=== PATIENT | female | born 1995 | race Caucasian/White ===

== ENCOUNTER 2019-07-26 18:43 | Emergency (ER) | payer OTHER ==
[~2019-07-26] VITALS: Ht 170.2 cm; Wt 68.0 kg
[2019-07-26] MEDS ORDERED: PRENATAL COMPL1 EACH PO (18:58)
== END 2019-07-26 22:06 | disposition home or self-care (01) ==
LOC: ED 18:43
DX: O20.0 Threatened abortion (principal); O99.342 Other mental disorders complicating pregnancy, second trimester; F41.9 Anxiety disorder, unspecified; Z3A.15 15 weeks gestation of pregnancy
CPT/HCPCS: 76815; 81001; 84702; 85025; 99284-25

== ENCOUNTER 2019-07-30 10:33 | Emergency (ER) | payer OTHER ==
[~2019-07-30] VITALS: Ht 170.2 cm; Wt 68.0 kg
[~2019-07-30 10:33] MED LIST: PRENATAL COMPL1 EACH PO
--- OUTSIDE RECORDS SUMMARY | 2019-07-30 10:36 | XMS ---
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 Bernard has no Care Guidelines for this patient. Sarah VISIT COUNT (12 MO.) 2 [facility] [place] TOTAL 2 NOTE: Visits indicate total known visits. [place] VISIT TRACKING (12 MO.) 07/30/2019 10:35 [facility] [place] TYPE: Emergency COMPLAINT: - CRAMPING 07/26/2019 18:[address] [facility] [place] TYPE: Emergency COMPLAINT: - VAGINAL BLEEDING DIAGNOSES: - 15 weeks gestation of - Other mental disorders complicating , second trimest - Hemorrhage in early , unspecified - Anxiety disorder, unspecified - Threatened INPATIENT VISIT TRACKING (12 MO.) No inpatient visits to display in this time frame [email or web address]
[2019-07-30] MEDS ORDERED: NUVESSA5 GM PV (12:37)
== END 2019-07-30 12:54 | disposition home or self-care (01) ==
LOC: ED 10:33
DX: O23.592 Infection of other part of genital tract in pregnancy, second trimester (principal); B96.89 Other specified bacterial agents as the cause of diseases classified elsewhere; O99.342 Other mental disorders complicating pregnancy, second trimester; F41.9 Anxiety disorder, unspecified; Z3A.16 16 weeks gestation of pregnancy
CPT/HCPCS: 76815; 80053; 81001; 83690; 83735; 85025; 87210; 87491; 87591; 96361; 96374; 99284-25; J2765; J7030

== ENCOUNTER 2020-01-20 00:08 | Inpatient (IN) | payer OTHER ==
[~2020-01-20] VITALS: Ht 167.6 cm; Wt 89.4 kg
[~2020-01-20 00:08] MED LIST changes: +NUVESSA5 GM PV
--- NOTE | 2020-01-20 12:32 | PR ---
[facility] [address] [place], [place] [address] Signed Progress Notes IP Datetime Report Generated by CPN: 01/20/2020 12:32 PROGRESS NOTES: [id number] Impression: Normal Progression of Labor; Reassuring Heart Rate Procedures: Artificial ROM; Sterile Vag Exam Plan: Continue Present Management VITAL SIGNS: [id number] Vital Signs: Reviewed; Within Normal Limits EXAM: [id number] Dilatation: 3.0 Effacement: 90 Station: -2 Contractions: rare MEMBRANES: [id number] ROM Note: vaginal vault dry Comments: Pt seen and examined. Doing well. Contractions more regular and mild, rated 3/10. Some bloody show. On exam, ripe cervix w/ bulging membranes. AROM performed w/out difficulty. Discussed anticapted course of FETUS A: [id number] FHR Baseline: 130 Variability: Moderate 6-25bpm Accelerations: 15X15 Decelerations: None FHR Category: Category I Comments on Fetus A: No evidence of metabolic acidosis FETUS B: [id number] Signing Physician: Mahendra Ludwig DO Copies: ~ *Electronically Signed* 01/20/20 1232 MAHENDRA LUDWIG DO PATIENT NAME: CARLOS BUTLER PROGRESS NOTE DATE OF : [birth year] PHYSICIAN: MAHENDRA LUDWIG DO RPT #: [id number] REPORT IS CONFIDENTIAL AND NOT TO BE RELEASED WITHOUT AUTHORIZATION
--- NOTE | 2020-01-20 15:52 | PR ---
[facility] [address] [facility] [place], [place] [address] Signed Progress Notes IP Datetime Report Generated by CPN: 01/20/2020 15:52 PROGRESS NOTES: [id number] Impression: Normal Progression of Labor; Reassuring Heart Rate Procedures: Sterile Vag Exam Plan: Continue Present Management VITAL SIGNS: [id number] Vital Signs: Reviewed; Within Normal Limits EXAM: [id number] Dilatation: 6.0 Effacement: 100 Station: 0 Contractions: rare MEMBRANES: [id number] ROM Note: vaginal vault dry Comments: Pt seen and examined. Doing well. Comfortable w/ epidural. Progressing as anticipated. Continue expectant management. Reviewed anticipated course of labor / delivery. All questions answered FETUS A: [id number] FHR Baseline: 130 Variability: Moderate 6-25bpm Accelerations: 15X15 Decelerations: None FHR Category: Category I Comments on Fetus A: No evidence of metabolic acidosis FETUS B: [id number] Signing Physician: Mahendra Ludwig DO Copies: ~ *Electronically Signed* 01/20/20 1552 MAHENDRA LUDWIG DO PATIENT NAME: CARLOS BUTLER PROGRESS NOTE DATE OF : [birth year] PHYSICIAN: MAHENDRA LUDWIG DO RPT #: [id number] REPORT IS CONFIDENTIAL AND NOT TO BE RELEASED WITHOUT AUTHORIZATION
--- NOTE | 2020-01-21 10:03 | PR ---
[facility] [address] [facility] [place], [place] [address] Signed PP Progress Notes Datetime Report Generated by CPN: 01/21/2020 10:03 SUBJECTIVE: [id number] Pain: Within Normal Limits Nausea/Vomiting: Denies Flatus: Yes Bowel Movement: No Vital Signs: [id number] Vital Signs: Reviewed; Within Normal Limits Cardiovascular: Normal Respiratory: Normal Abdomen/Uterus: Normal Lochia: Normal Vulva/Perineum: Not Done Breasts: Not Done CVA Tenderness: Normal Extremities: Normal Incision: Not Applicable Progress: Normal Exam Comments: Fundus firm U-2 nontender IMPRESSION/PLAN/PROCEDURES: [id number] Impression: Normal Progression Plan: Continue Present Management Progress Notes: Pt seen and examined. Doing well. Ambulating, voiding, and tolerating full diet. Pain and lochia minimal. well. No questions or concerns. Anticipate d/c home tomorrow. Hgb 11.0 Signing Physician: Mahendra Ludwig DO Copies: ~ *Electronically Signed* 01/21/20 1003 MAHENDRA LUDWIG DO PATIENT NAME: CARLOS BUTLER PROGRESS NOTE DATE OF : [birth year] PHYSICIAN: MAHENDRA LUDWIG DO RPT #: [id number] REPORT IS CONFIDENTIAL AND NOT TO BE RELEASED WITHOUT AUTHORIZATION
--- NOTE | 2020-01-22 08:49 | PR ---
[facility] [address] [facility] [place], [place] [address] Signed PP Progress Notes Datetime Report Generated by CPN: 01/22/2020 08:49 SUBJECTIVE: [id number] Pain: Within Normal Limits Nausea/Vomiting: Denies Flatus: Yes Bowel Movement: Yes Vital Signs: [id number] Vital Signs: Reviewed; Within Normal Limits Cardiovascular: Normal Respiratory: Normal Abdomen/Uterus: Normal Lochia: Normal Vulva/Perineum: Normal Breasts: Not Done CVA Tenderness: Normal Extremities: Normal Incision: Not Applicable Progress: Normal Exam Comments: Fundus firm U-2 nontender. Vulva examined with RN plasma processing centrifuge operator and well healing IMPRESSION/PLAN/PROCEDURES: [id number] Impression: Normal Progression Plan: Discharge Progress Notes: Pt seen and examined. Doing well. Ambulating, voiding, and tolerating full diet. C/O some vulvar discomfort but improved with ice. Normal exam. Discharge home today. Reviewed d/c instructions in detail. Signing Physician: Mahendra Ludwig DO Copies: ~ *Electronically Signed* 01/22/20 0849 MAHENDRA LUDWIG DO PATIENT NAME: CARLOS BUTLER PROGRESS NOTE DATE OF : [birth year] PHYSICIAN: MAHENDRA LUDWIG DO RPT #: [id number] REPORT IS CONFIDENTIAL AND NOT TO BE RELEASED WITHOUT AUTHORIZATION
== END 2020-01-22 11:45 | disposition home or self-care (01) | DRG 806 ==
LOC: FBC 00:08
PROVIDERS: ADMIT Obstetrics & Gynecology; ATTEND Obstetrics & Gynecology
PROC: 10E0XZZ Delivery of Products of Conception, External Approach (ICD-10-PCS; principal; 2020-01-20)
PROC: 0KQM0ZZ Repair Perineum Muscle, Open Approach (ICD-10-PCS; 2020-01-20)
PROC: 10907ZC Drainage of Amniotic Fluid, Therapeutic from Products of Conception, Via Natural or Artificial Opening (ICD-10-PCS; 2020-01-20)
PROC: 3E0P7VZ Introduction of Hormone into Female Reproductive, Via Natural or Artificial Opening (ICD-10-PCS; 2020-01-20)
PROC: 00HU33Z Insertion of Infusion Device into Spinal Canal, Percutaneous Approach (ICD-10-PCS; 2020-01-20)
PROC: 3E0R3BZ Introduction of Anesthetic Agent into Spinal Canal, Percutaneous Approach (ICD-10-PCS; 2020-01-20)
DX: O99.324 Drug use complicating childbirth (principal); O99.354 Diseases of the nervous system complicating childbirth; Z37.0 Single live birth; G43.009 Migraine without aura, not intractable, without status migrainosus; F12.90 Cannabis use, unspecified, uncomplicated; O70.1 Second degree perineal laceration during delivery; Z3A.40 40 weeks gestation of pregnancy; Z87.891 Personal history of nicotine dependence; Z86.19 Personal history of other infectious and parasitic diseases
CPT/HCPCS: 01960; 36415; 85027; A9270; J2795; J3010

== ENCOUNTER 2020-07-13 14:55 | Emergency (ER) | payer OTHER ==
[~2020-07-13] VITALS: Ht 167.6 cm; Wt 77.1 kg
--- OUTSIDE RECORDS SUMMARY | 2020-07-13 15:00 | XMS ---
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 Bernard has no Care Guidelines for this patient. Sarah VISIT COUNT (12 MO.) 3 [facility] TOTAL 3 NOTE: Visits indicate total known visits. ED/C VISIT TRACKING (12 MO.) 07/13/2020 14:55 [facility] [place] TYPE: Emergency COMPLAINT: - SYNCOPE EPISODE/SEIZURE 07/30/2019 10:35 [facility] [place] TYPE: Emergency COMPLAINT: - CRAMPING DIAGNOSES: - Other specified diseases and conditions complicating , childbirth and the puerperium - Other mental disorders complicating , second trimester - 16 weeks gestation of - Infection of other part of genital tract in , second trimester - Other specified bacterial agents as the cause of diseases classified elsewhere - Anxiety disorder, unspecified 07/26/2019 18:44 [facility] [place] TYPE: Emergency COMPLAINT: - VAGINAL BLEEDING DIAGNOSES: - 15 weeks gestation of - Other mental disorders complicating , second trimester - Hemorrhage in early , unspecified - Anxiety disorder, unspecified - Threatened INPATIENT VISIT TRACKING (12 MO.) 01/20/2020 00:08 [facility] [place] TYPE: [facility] COMPLAINT: - INDUCTION DIAGNOSES: - Drug use complicating childbirth - Second degree perineal laceration during delivery - 40 weeks gestation of - 40 weeks gestation of - Drug use complicating childbirth - Diseases of the nervous system complicating childbirth - Single live - Diseases of the nervous system complicating childbirth - Migraine without aura, not intractable, without status migrainosus - Migraine without aura, not intractable, without status migrainosus - Cannabis use, unspecified, uncomplicated - Drug use complicating , third trimester - Personal history of other infectious and parasitic diseases - Single live - Personal history of nicotine dependence - Personal history of nicotine dependence - Second degree perineal laceration during delivery - Personal history of other infectious and parasitic diseases - Cannabis use, unspecified, uncomplicated [email or web address]
--- NOTE | 2020-07-13 18:58 | EKG ---
[facility] [address] [facility] [place] [address] Signed Normal sinus rhythm Rightward axis Borderline ECG No previous ECGs available Confirmed by KRISTINA DUQUE MD ([id number]) on 07/13/2020 6:58:40 PM Electronically Signed By: KRISTINA DUQUE MD 07/13/20 1858 PATIENT NAME: CARLOS BUTLER Electrocardiogram DATE OF : [birth year] PHYSICIAN: KRISTINA DUQUE MD REPORT #: [id number] REPORT IS CONFIDENTIAL AND NOT TO BE RELEASED WITHOUT AUTHORIZATION
[2020-07-13] MEDS ORDERED: PRENATAL TABLE1 EAC1 PO (23:02)
== END 2020-07-13 18:40 | disposition home or self-care (01) ==
LOC: ED 14:55
DX: O99.891 Other specified diseases and conditions complicating pregnancy (principal); R55 Syncope and collapse; Z3A.15 15 weeks gestation of pregnancy; Z87.891 Personal history of nicotine dependence
CPT/HCPCS: 80053; 81001; 83735; 84484; 85025; 93005; 93010; 99284-25; J7030

== ENCOUNTER 2020-12-29 00:18 | Inpatient (IN) | payer OTHER ==
[~2020-12-29] VITALS: Ht 142.2 cm; Wt 95.3 kg
[~2020-12-29 00:18] MED LIST changes: +PRENATAL TABLE1 EAC1 PO
--- NOTE | 2021-01-02 13:15 | PATH ---
[facility] [address] [place], [place] [address] Signed SPECIMEN(S): A PLACENTA SPECIMEN SOURCE: A. PLACENTA CLINICAL HISTORY: Marginal abruption. FINAL PATHOLOGIC DIAGNOSIS: Placenta, umbilical cord and membranes: - Chorionic villi with appropriate maturation for gestational age. - Completeness of cotyledons cannot be ascertained, due to fragmentation of placenta (see Gross Description). - Focal microcalcifications. - Villous infarction comprising less than 10% of placental volume. - Three-vessel umbilical cord, with no pathologic abnormality. - membranes with mild acute chorioamnionitis. DF:llc:C2NR MICROSCOPIC EXAMINATION: Histologic sections of all submitted blocks are examined by light microscopy. These findings, together with the gross examination, support the pathologic diagnosis. GROSS DESCRIPTION: The specimen, labeled "Carlos Wiley, placenta," is received fresh and placed in formalin and consists of ambriz discoid placenta with the following parameters: Umbilical cord: Insertion paramarginal, measurement 42.3 x 1.5 cm; trivascular. Cord coiling index (per 10 cm): Two. Lesions: Areas of knuckling. Membranes: Insertion site: Marginal, pink and translucent with areas of opacification, rupture site grossly unremarkable. Intact. Other: Not grossly identified. Chorionic Plate: Normal radiating vascular pattern, blue-purple and shiny with minimal subchorionic fibrin. Lesions: Not grossly identified. Other: Not grossly identified. Maternal Surface: Normal cotyledons, one area of disruption at the periphery of the disc measuring 2.5 x 2.0 cm. Lesions: Not grossly identified. Measurement: 20.4 x 17.5 x 3.0 cm. Weight (trimmed): 556 g Cut Surface: Maroon and spongy. Lesions: Three areas of yellow-gibbs laminated PATIENT NAME: CARLOS WILEY PATHOLOGY DATE OF : [birth year] REPORT #: [id number] PHYSICIAN: MARKUS PATHOLOGY PCP: GENE HU MD REPORT IS CONFIDENTIAL AND NOT TO BE RELEASED WITHOUT AUTHORIZATION [facility] [address] [place], [place] [address] Signed consolidation that range in size from 1.5 cm up to 2.0 cm in greatest dimension and involve less than 10% of the placenta parenchyma. Focal areas of white, irregular fibrous tissue with gibbs calcification are present and involve less than 10% of the placenta parenchyma. Basal plate fibrin 0.1 cm in thickness. Other Findings: No firmly adherent blood clot is grossly identified. Compression of the placental disc is not grossly identified. Cassette Summary: (A1) membranes and umbilical cord (A2) areas of consolidation (A3-A4) areas of irregular fibrous tissue and calcifications (A5-A6) placenta parenchyma FB (under the direct supervision of a pathologist) The Gross Description was prepared using a voice recognition system. The report was reviewed for accuracy; however, sound-alike word errors, addition and/or deletions may occur. If there is any question about this report, please contact Client Services. PERFORMING LABORATORY: The technical component was performed by [facility] [address] (Boarding Kennel Or Cattery Operator: Monica Jurado MD; CLIA# [id number]). Professional interpretation was performed by [facility], [address] [facility] [address] [address] (CLIA# [id number]). Diagnostician: Carlton Oakley DO Pathologist Electronically Signed 01/02/2021 Copies: ~ PATIENT NAME: CARLOS WILEY PATHOLOGY DATE OF : [birth year] REPORT #: [id number] PHYSICIAN: MARKUS PATHOLOGY PCP: GENE HU MD REPORT IS CONFIDENTIAL AND NOT TO BE RELEASED WITHOUT AUTHORIZATION
== END 2020-12-30 14:48 | disposition home or self-care (01) | DRG 806 ==
LOC: FBC 00:18
PROVIDERS: ADMIT Obstetrics & Gynecology; ATTEND Obstetrics & Gynecology
PROC: 10E0XZZ Delivery of Products of Conception, External Approach (ICD-10-PCS; principal; 2020-12-29)
PROC: 10907ZC Drainage of Amniotic Fluid, Therapeutic from Products of Conception, Via Natural or Artificial Opening (ICD-10-PCS; 2020-12-29)
PROC: 3E0R3BZ Introduction of Anesthetic Agent into Spinal Canal, Percutaneous Approach (ICD-10-PCS; 2020-12-29)
PROC: 00HU33Z Insertion of Infusion Device into Spinal Canal, Percutaneous Approach (ICD-10-PCS; 2020-12-29)
DX: O45.8X3 Other premature separation of placenta, third trimester (principal); O99.324 Drug use complicating childbirth; Z37.0 Single live birth; O99.354 Diseases of the nervous system complicating childbirth; O99.344 Other mental disorders complicating childbirth; F41.9 Anxiety disorder, unspecified; F12.90 Cannabis use, unspecified, uncomplicated; G43.909 Migraine, unspecified, not intractable, without status migrainosus; Z20.822 Contact with and (suspected) exposure to COVID-19; F32.A Depression, unspecified; Z3A.39 39 weeks gestation of pregnancy
CPT/HCPCS: 01960; 85027; A9270; C9803; J2590; J2795; J3010; U0003

== ENCOUNTER 2021-10-29 18:28 | Emergency (ER) | payer OTHER ==
[~2021-10-29] VITALS: Ht 167.6 cm; Wt 90.7 kg
[2021-10-29] MEDS ORDERED: ABILIFY30 MG PO (20:16)
== END 2021-10-29 23:27 | disposition home or self-care (01) ==
LOC: ED 18:28
DX: O20.0 Threatened abortion (principal); O99.331 Smoking (tobacco) complicating pregnancy, first trimester; F17.200 Nicotine dependence, unspecified, uncomplicated; Z3A.14 14 weeks gestation of pregnancy; Z88.8 Allergy status to other drugs, medicaments and biological substances; Z79.899 Other long term (current) drug therapy
CPT/HCPCS: 36415; 76801; 80048; 81001; 84702; 84703; 85025; 86900; 86901

== ENCOUNTER 2021-11-30 12:55 | Emergency (ER) | payer OTHER ==
[~2021-11-30] VITALS: Ht 167.6 cm; Wt 90.3 kg
[~2021-11-30 12:55] MED LIST changes: +ABILIFY30 MG PO
--- OUTSIDE RECORDS SUMMARY | 2021-11-30 12:58 | XMS ---
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 - 2 Visits in 30 Days - Group Notification CARE PROVIDERS GENE HU [facility] 07/17/2020-Current PHONE: Unknown Bernard has no Care Guidelines for this patient. Care History Medical/Surgical 07/17/[address] [facility] - Patient is currently established with [facility]. If patient is seen in the ED during business hours. Please contact CHWs at [facility]. Care Recommendation: If this patient has had 5 or more Emergency Department visits in the last 12 months.\T\nbsp; Patient will require education on the scope and purpose of the ED as an acute care provider not a Primary Care Provider and should not be utilized for chronic conditions.\T\nbsp; These are guidelines and the provider should exercise clinical judgment when providing care. E.D. VISIT COUNT (12 MO.) 3 [facility] TOTAL 3 NOTE: Visits indicate total known visits. ED/UCC VISIT TRACKING (12 MO.) 11/30/2021 12:[address] [facility] [place] TYPE: Emergency COMPLAINT: - DIFFICULTY BREATHING, COUGH 11/06/2021 20:[address] [facility] [place] TYPE: Emergency COMPLAINT: - ABD PAIN 14 WKS DIAGNOSES: - Smoking (tobacco) complicating , first trimester - Complete placenta previa NOS or without hemorrhage, first trimester - Nicotine dependence, unspecified, uncomplicated - 14 weeks gestation of - Other specified diseases and conditions complicating - Allergy status to other drugs, medicaments and biological substances 10/29/2021 18:28 [facility] [place] TYPE: Emergency COMPLAINT: - VAGINAL BLEEDING/12 WEEKS PREG DIAGNOSES: - Nicotine dependence, unspecified, uncomplicated - Allergy status to other drugs, medicaments and biological substances - Threatened - Smoking (tobacco) complicating , first trimester - 14 weeks gestation of - 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 INPATIENT VISIT TRACKING (12 MO.) 12/29/2020 00:18 [facility] [place] TYPE: [facility] COMPLAINT: - INDUCTION DIAGNOSES: - Single live - Single live - Drug use complicating childbirth - Cannabis use, unspecified, uncomplicated - Drug use complicating childbirth - Diseases of the nervous system complicating childbirth - Other premature separation of placenta, third trimester - DEPRESSION, UNSPECIFIED - Migraine, unspecified, not intractable, without status migrainosus - Other premature separation of placenta, third trimester - Other mental disorders complicating childbirth - DEPRESSION, UNSPECIFIED - 39 weeks gestation of - Other mental disorders complicating childbirth - Migraine, unspecified, not intractable, without status migrainosus - Premature separation of placenta, unspecified, third trimester - Anxiety disorder, unspecified - 39 weeks gestation of - Anxiety disorder, unspecified - Diseases of the nervous system complicating childbirth - Cannabis use, unspecified, uncomplicated [email or web address]
[2021-11-30] MEDS ORDERED: VITAMIN D21250 MCG PO (14:54)
[2021-11-30] MEDS ORDERED: VENTOLIN HFA18 GM INH ×2 (14:54→16:15)
[2021-11-30] MEDS ORDERED: PREDNISONE20 MG PO (16:15)
== END 2021-11-30 16:21 | disposition home or self-care (01) ==
LOC: ED 12:55
DX: J20.8 Acute bronchitis due to other specified organisms (principal); Z20.822 Contact with and (suspected) exposure to COVID-19; F17.200 Nicotine dependence, unspecified, uncomplicated; Z88.8 Allergy status to other drugs, medicaments and biological substances; Z79.899 Other long term (current) drug therapy
CPT/HCPCS: 87502; 94640; 94664; 99285-25; C9803; J7512; U0003

== ENCOUNTER 2022-04-05 13:46 | Emergency (ER) | payer OTHER ==
[~2022-04-05] VITALS: Ht 167.6 cm; Wt 94.8 kg
[~2022-04-05 13:46] MED LIST changes: +PREDNISONE20 MG PO; +VENTOLIN HFA18 GM INH; +VITAMIN D21250 MCG PO
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
[2022-04-05] MEDS ORDERED: REGLAN10 MG PO (16:24)
== END 2022-04-05 16:30 | disposition home or self-care (01) ==
LOC: ED 13:46
DX: O9A.213 Injury, poisoning and certain other consequences of external causes complicating pregnancy, third trimester (principal); S06.0XAA Concussion with loss of consciousness status unknown, initial encounter; O99.891 Other specified diseases and conditions complicating pregnancy; R51.9 Headache, unspecified; O99.333 Smoking (tobacco) complicating pregnancy, third trimester; F17.200 Nicotine dependence, unspecified, uncomplicated; Z88.8 Allergy status to other drugs, medicaments and biological substances; Z79.899 Other long term (current) drug therapy; Z3A.36 36 weeks gestation of pregnancy
CPT/HCPCS: 36415; 80053; 85025; 96374; 96375; 99284-25; A9270; J2405; J2765; J7030

== ENCOUNTER 2022-05-03 05:50 | Inpatient (IN) | payer BC, OTHER ==
[~2022-05-03] VITALS: Ht 167.6 cm; Wt 98.9 kg
[~2022-05-03 05:50] MED LIST changes: +REGLAN10 MG PO
--- NOTE | 2022-05-03 07:47 | PR ---
[facility] [address] [place], [place] [address] Signed Progress Notes IP Datetime Report Generated by CPEmilia: 05/03/2022 07:47 PROGRESS NOTES: [id number] Impression: Normal Progression of Labor; Reassuring Heart Rate Procedures: Artificial ROM Plan: Continue Present Management; Anticipate Vaginal Delivery Informed Consent Obtain: Vaginal Delivery; Risks, Benefits and Alternatives Discussed VITAL SIGNS: [id number] Vital Signs: Reviewed; Within Normal Limits VS Notable Details: mild maternal tachycardia EXAM: [id number] Dilatation: 3.5 Effacement: 70 Station: -3 Contractions: Rare MEMBRANES: [id number] Membranes Status: Intact Comments: Pt seen and examined. Reviewed ripe cervix and vertex well applied. Comfortable exam. Pt agrees to AROM which was performed w/out difficulty for large amount of clear fluid. Mother and baby did well. Reviewed anticipated weight _8lb8oz and adequate pelvis and history. All questions answered FETUS A: [id number] FHR Baseline: 135 Variability: Moderate 6-25bpm Accelerations: None Decelerations: None FHR Category: Category I Presentation: Vertex Comments on Fetus A: No evidence FETUS B: [id number] Signing Physician: Mahendra Ludwig DO Copies: ~ *Electronically Signed* 05/03/22 0704 MAHENDRA LUDWIG (ROBSON) DO PATIENT NAME: CARLOS BUTLER PROGRESS NOTE DATE OF : [birth year] PHYSICIAN: MAHENDRA LUDWIG) DO RPT #: [id number] REPORT IS CONFIDENTIAL AND NOT TO BE RELEASED WITHOUT AUTHORIZATION
--- NOTE | 2022-05-03 11:31 | PR ---
[facility] [address] [facility] [place], [place] [address] Signed Progress Notes IP Datetime Report Generated by CPN: 05/03/2022 11:31 PROGRESS NOTES: [id number] Impression: Normal Progression of Labor; Reassuring Heart Rate Other Impressions: Slow progression of labor Procedures: Intrauterine Pressure Catheter Plan: Augmentation Informed Consent Obtain: Vaginal Delivery Other Informed Consents: Pitocin augmentation of labor VITAL SIGNS: [id number] Vital Signs: Reviewed; Within Normal Limits VS Notable Details: mild maternal tachycardia EXAM: [id number] Dilatation: 4.0 Effacement: 70 Station: -3 Contractions: Rare MEMBRANES: [id number] Membranes Status: Intact Comments: Pt seen and examined. No cervical change noted. Discussed IUPC and pitocin augementation. Pt agrees. Will monitor FHT and start pitocin per protocol. FETUS A: [id number] FHR Baseline: 135 Variability: Moderate 6-25bpm Accelerations: None Decelerations: None FHR Category: Category I Presentation: Vertex Comments on Fetus A: No evidence FETUS B: [id number] Signing Physician: Mahendra Ludwig DO Copies: ~ *Electronically Signed* 05/03/22 1139 MAHENDRA LUDWIG (ROBSON) DO PATIENT NAME: CARLOS BUTLER PROGRESS NOTE DATE OF : [birth year] PHYSICIAN: MAHENDRA LUDWIG (JD) DO RPT #: [id number] REPORT IS CONFIDENTIAL AND NOT TO BE RELEASED WITHOUT AUTHORIZATION
[2022-05-03] MEDS ORDERED: METOCLOPRAMIDE10 MG PO (14:11)
--- NOTE | 2022-05-03 15:36 | PR ---
[facility] [address] [facility] [place], [place] [address] Signed Progress Notes IP Datetime Report Generated by CPN: 05/03/2022 15:35 PROGRESS NOTES: [id number] Impression: Normal Progression of Labor; Reassuring Heart Rate Other Impressions: Slow progression of labor Procedures: Sterile Vag Exam Plan: Continue Present Management; Anticipate Vaginal Delivery Informed Consent Obtain: Risks, Benefits and Alternatives Discussed Other Informed Consents: Pitocin augmentation of labor VITAL SIGNS: [id number] Vital Signs: Reviewed; Within Normal Limits VS Notable Details: mild maternal tachycardia EXAM: [id number] Dilatation: 7.0 Effacement: 100 Station: -2 Contractions: Rare MEMBRANES: [id number] Membranes Status: Intact Comments: called to pts room for recurrent variable decelerations. Rapid cervical change noted. FHT overall reassuring. Expect soon FETUS A: [id number] FHR Baseline: 135 Variability: Moderate 6-25bpm Accelerations: None Decelerations: None FHR Category: Category I Presentation: Vertex Comments on Fetus A: No evidence FETUS B: [id number] Signing Physician: Mahendra uLdwig DO Copies: ~ *Electronically Signed* 05/03/22 1532 MAHENDRA LUDWIG (ROBSON) DO PATIENT NAME: CARLOS BUTLER PROGRESS NOTE DATE OF : [birth year] PHYSICIAN: MAHENDRA LUDWIG (JD) DO RPT #: [id number] REPORT IS CONFIDENTIAL AND NOT TO BE RELEASED WITHOUT AUTHORIZATION
== END 2022-05-04 17:36 | disposition home or self-care (01) | DRG 807 ==
LOC: FBC 05:50
PROVIDERS: ADMIT Obstetrics & Gynecology; ATTEND Obstetrics & Gynecology
PROC: 10E0XZZ Delivery of Products of Conception, External Approach (ICD-10-PCS; principal; 2022-05-03)
PROC: 10907ZC Drainage of Amniotic Fluid, Therapeutic from Products of Conception, Via Natural or Artificial Opening (ICD-10-PCS; 2022-05-03)
PROC: 10H07YZ Insertion of Other Device into Products of Conception, Via Natural or Artificial Opening (ICD-10-PCS; 2022-05-03)
PROC: 0HQ9XZZ Repair Perineum Skin, External Approach (ICD-10-PCS; 2022-05-03)
PROC: 00HU33Z Insertion of Infusion Device into Spinal Canal, Percutaneous Approach (ICD-10-PCS; 2022-05-03)
PROC: 3E0R3BZ Introduction of Anesthetic Agent into Spinal Canal, Percutaneous Approach (ICD-10-PCS; 2022-05-03)
DX: O99.214 Obesity complicating childbirth (principal); Z37.0 Single live birth; O99.324 Drug use complicating childbirth; Z67.20 Type B blood, Rh positive; F12.90 Cannabis use, unspecified, uncomplicated; O76 Abnormality in fetal heart rate and rhythm complicating labor and delivery; O99.344 Other mental disorders complicating childbirth; F32.A Depression, unspecified; Z20.822 Contact with and (suspected) exposure to COVID-19; F41.9 Anxiety disorder, unspecified; O70.0 First degree perineal laceration during delivery; Z3A.39 39 weeks gestation of pregnancy; Z87.891 Personal history of nicotine dependence
CPT/HCPCS: 01960; 36415; 85027; 86850; 86900; 86901; 87502; A9270; C9803; J2590; J7121; U0003

== ENCOUNTER 2023-01-24 19:44 | Emergency (ER) | payer BC, OTHER ==
[~2023-01-24] VITALS: Ht 182.9 cm; Wt 99.0 kg
[~2023-01-24 19:44] MED LIST changes: +METOCLOPRAMIDE10 MG PO
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
[2023-01-24] MEDS ORDERED: DULOXETINE HCL20 MG PO (20:03)
[2023-01-24] MEDS ORDERED: VRAYLAR4.5 MG PO (20:03)
[2023-01-24 20:15] LABS: BILIRUBIN, URINE NEGATIVE (negative); BLOOD/HGB, URINE NEGATIVE (Negative); KETONE, URINE NEGATIVE (Negative); LEUK ESTERASE, URINE NEGATIVE (negative); NITRITE, URINE NEGATIVE (negative); PH, URINE 5.5 (5-7)
[2023-01-24 20:37] LABS: BASOPHILS 0.4 % (0-2); EOSINOPHILS 5.9 % (0-6); HEMATOCRIT 40.5 % (35.0-50.0); HEMOGLOBIN 14.1 g/dL (12.0-18.0); LYMPHOCYTES 39.6 % (24-44); MCH 31.5 (27-36); MCHC 34.9 g/dl (30-36); MCV 90.2 fl (81-99); MONOCYTES 6.8 % (0-12); NEUTROPHILS 47.3 % (39-80); PLATELET COUNT 184 K/uL (140-440); RBC 4.49 M/ul (4.3-5.7); RDW 13.1 (10.5-15.0)
[2023-01-24 20:50] LABS: ALBUMIN 4.3 g/dL (3.4-5.0); ALBUMIN/GLOBULIN RATIO 1.54 (1.1-2.4); ANION GAP 13.6 (7-21); BILIRUBIN, TOTAL 0.5 ng/dL (0.2-1.0); BUN/CREATININE RATIO 13.63 (6.0-28.6); CALCIUM 8.6 mg/dL (8.5-10.1); CREATININE, SERUM 0.88 mg/dL (0.55-1.02); POTASSIUM 3.6 mmol/L (3.5-5.1); PROTEIN, TOTAL 7.1 g/dL (6.4-8.2)
[2023-01-24] MEDS ORDERED: GAS RELIEF125 MG PO (22:08)
[2023-01-24] MEDS ORDERED: LOMOTIL TABLET1 EACH PO (22:08)
[2023-01-24 22:25] VITALS: BP 157/93
== END 2023-01-24 22:21 | disposition home or self-care (01) ==
LOC: ED 19:44
PROVIDERS: Family Medicine
DX: R14.0 Abdominal distension (gaseous) (principal); K52.9 Noninfective gastroenteritis and colitis, unspecified; Z87.891 Personal history of nicotine dependence; Z79.899 Other long term (current) drug therapy
CPT/HCPCS: 36415; 74177; 80053; 81003; 83690; 84703; 85025; 96361; 96375; 99284-25; J2270; J2405; J7030; Q9967

== ENCOUNTER 2024-03-07 16:59 | Emergency (ER) | payer BC, OTHER ==
[~2024-03-07] VITALS: Ht 182.9 cm; Wt 86.9 kg
[~2024-03-07 16:59] MED LIST changes: +BENZONATATE100 MG PO; +DULOXETINE HCL20 MG PO; +GAS RELIEF125 MG PO; +GEODON20 MG PO; +LOMOTIL TABLET1 EACH PO; +NASAL DECONGEST30 MG PO; +NEOMYCIN-POLYMY10 M1 OTIC; +VRAYLAR4.5 MG PO
[2024-03-07 17:14] LABS: BILIRUBIN, URINE NEGATIVE (negative); BLOOD/HGB, URINE NEGATIVE (Negative); KETONE, URINE NEGATIVE (Negative); LEUK ESTERASE, URINE NEGATIVE (negative); NITRITE, URINE NEGATIVE (negative); PH, URINE 5.5 (5-7)
[2024-03-07] MEDS ORDERED: SODIUM CHLORIDE 0.9% 1,000 ML IV ONE (17:30)
[2024-03-07 17:33] LABS: BASOPHILS 0.3 % (0-2); EOSINOPHILS 1.5 % (0-6); HEMATOCRIT 41.2 % (35.0-50.0); HEMOGLOBIN 14.6 g/dL (12.0-18.0); LYMPHOCYTES 27.8 % (24-44); MCH 32.1 (27-36); MCHC 35.3 g/dl (30-36); MONOCYTES 5.7 % (0-12); NEUTROPHILS 64.7 % (39-80); PLATELET COUNT 195 K/uL (140-440); RBC 4.53 M/ul (4.3-5.7); RDW 12.4 (10.5-15.0)
[2024-03-07 17:47] LABS: ALBUMIN 4.6 g/dL (3.4-5.0); ALBUMIN/GLOBULIN RATIO 1.64 (1.1-2.4); ANION GAP 17.5 (7-21); BUN/CREATININE RATIO 9.63 (6.0-28.6); CALCIUM 8.8 mg/dL (8.5-10.1); CREATININE, SERUM 0.83 mg/dL (0.55-1.02); POTASSIUM 3.5 mmol/L (3.5-5.1); PROTEIN, TOTAL 7.4 g/dL (6.4-8.2)
[2024-03-07 18:52] VITALS: BP 117/94
== END 2024-03-07 18:53 | disposition home or self-care (01) ==
LOC: ED 16:59
PROVIDERS: Emergency Medicine
DX: R10.11 Right upper quadrant pain (principal); G43.909 Migraine, unspecified, not intractable, without status migrainosus; Z87.891 Personal history of nicotine dependence; Z88.8 Allergy status to other drugs, medicaments and biological substances; Z79.899 Other long term (current) drug therapy
CPT/HCPCS: 36415; 74176; 80053; 81003; 83690; 84703; 85025; 96360; 99284-25; J7030

== ENCOUNTER 2024-05-30 11:59 | Emergency (ER) | payer OTHER ==
[~2024-05-30] VITALS: Ht 182.9 cm; Wt 89.5 kg
[2024-05-30] MEDS ORDERED: TRAZODONE HCL100 MG PO (12:07)
[2024-05-30] MEDS ORDERED: PREDNISONE20 MG PO (12:07)
[2024-05-30] MEDS ORDERED: BUSPIRONE HCL30 MG PO (12:08)
[2024-05-30] MEDS ORDERED: KETOROLAC TROMETHAMINE 30 MG/ML VIAL IV ONE (12:15)
[2024-05-30] MEDS ORDERED: ALBUTEROL/IPRATROPIUM 3 ML NEB INH ONE (12:15)
[2024-05-30] MEDS ORDERED: methylPREDNISolone SOD SUCC 125 MG/2 ML VIAL IV ONE (12:15)
[2024-05-30 12:17] LABS: BASOPHILS 0.3 % (0-2); EOSINOPHILS 1.4 % (0-6); HEMATOCRIT 39.8 % (35.0-50.0); HEMOGLOBIN 13.8 g/dL (12.0-18.0); LYMPHOCYTES 43.6 % (24-44); MCH 31.6 (27-36); MCHC 34.6 g/dl (30-36); MCV 91.5 fl (81-99); MONOCYTES 6.1 % (0-12); NEUTROPHILS 48.6 % (39-80); PLATELET COUNT 165 K/uL (140-440); RBC 4.35 M/ul (4.3-5.7); RDW 13.1 (10.5-15.0)
[2024-05-30 12:34] LABS: ALBUMIN 4.3 g/dL (3.4-5.0); ALBUMIN/GLOBULIN RATIO 1.54 (1.1-2.4); ANION GAP 14.7 (7-21); BILIRUBIN, TOTAL 0.4 mg/dL (0.2-1.0); BUN/CREATININE RATIO 15.9 (6.0-28.6); CALCIUM 8.7 mg/dL (8.5-10.1); CREATININE, SERUM 0.88 mg/dL (0.55-1.02); POTASSIUM 3.7 mmol/L (3.5-5.1); PROTEIN, TOTAL 7.1 g/dL (6.4-8.2)
--- NOTE | 2024-05-30 12:47 | EKG ---
[facility] [address] [facility] [place] [address] Signed Normal sinus rhythm Normal ECG When compared with ECG of 01-APR-2022 14:33, No significant change was found Confirmed by Peter Paz MD ([id number]) on 05/30/2024 12:46:54 PM Electronically Signed By: PETER PAZ MD 05/30/24 1247 PATIENT NAME: CARLOS BUTLER Electrocardiogram DATE OF : [birth year] PHYSICIAN: PETER PAZ MD REPORT #: [id number] REPORT IS CONFIDENTIAL AND NOT TO BE RELEASED WITHOUT AUTHORIZATION
[2024-05-30] MEDS ORDERED: ALBUTEROL2.5 MG/3 M INH (13:44)
[2024-05-30 13:50] VITALS: BP 122/73
== END 2024-05-30 13:50 | disposition home or self-care (01) ==
LOC: ED 11:59
PROVIDERS: Emergency Medicine
DX: J45.909 Unspecified asthma, uncomplicated (principal); G43.909 Migraine, unspecified, not intractable, without status migrainosus; Z79.52 Long term (current) use of systemic steroids; Z79.899 Other long term (current) drug therapy; Z88.8 Allergy status to other drugs, medicaments and biological substances; Z87.891 Personal history of nicotine dependence
CPT/HCPCS: 36415; 71045; 80053; 84484; 85025; 93005; 93010; 94640; 96374; 96375; 99285-25; J1885; J2919

== ENCOUNTER 2024-08-14 19:12 | Emergency (ER) | payer BC, OTHER ==
[~2024-08-14] VITALS: Ht 182.9 cm; Wt 88.2 kg
[~2024-08-14 19:12] MED LIST changes: +ALBUTEROL2.5 MG/3 M INH; +BUSPIRONE HCL30 MG PO; +TRAZODONE HCL100 MG PO
[2024-08-14] MEDS ORDERED: VRAYLAR6 MG PO (19:28)
[2024-08-14] MEDS ORDERED: KETOROLAC TROMETHAMINE 30 MG/ML VIAL IV ONE (19:30)
[2024-08-14] MEDS ORDERED: diphenhydrAMINE HCL 50 MG/ML VIAL IV ONE (19:30)
[2024-08-14] MEDS ORDERED: METOCLOPRAMIDE HCL 10 MG/2 ML SDV IV ONE (19:30)
[2024-08-14] MEDS ORDERED: SODIUM CHLORIDE 0.9% 500 ML IV PRN (19:30)
[2024-08-14] MEDS ORDERED: SUMAtriptan succinate 6 MG/0.5 ML VIAL SUB-Q ONE (19:30)
[2024-08-14 19:44] LABS: BASOPHILS 0.3 % (0.1-1.2); EOSINOPHILS 3.9 % (0.7-5.8); HEMATOCRIT 36.7 % (34.1-44.9); HEMOGLOBIN 12.7 g/dL (11.2-15.7); LYMPHOCYTES 34.9 % (19.3-51.7); MCHC 34.6 g/dL (32.2-35.5); MCV 89.5 fL (79.4-94.8); MONOCYTES 7.8 % (4.7-12.5); NEUTROPHILS 52.9 % (34.0-71.1); PLATELET COUNT 171 K/uL (182-369)
[2024-08-14 20:00] LABS: ALBUMIN 4.2 g/dL (3.4-5.0); ALBUMIN/GLOBULIN RATIO 1.5 (1.1-2.4); ANION GAP 14.9 (7-21); BILIRUBIN, TOTAL 0.4 mg/dL (0.2-1.0); BUN/CREATININE RATIO 19.73 (6.0-28.6); CREATININE, SERUM 0.76 mg/dL (0.55-1.02); MAGNESIUM 1.7 mg/dL (1.8-2.4); POTASSIUM 3.9 mmol/L (3.5-5.1)
[2024-08-14] MEDS ORDERED: ONDANSETRON ODT8 MG PO (20:42)
[2024-08-14] MEDS ORDERED: BUTALB-ACETAMI1 EACH PO (20:42)
[2024-08-14] MEDS ORDERED: MAGNESIUM OXIDE 400 MG TABLET PO ONE (20:45)
[2024-08-14 21:03] VITALS: BP 120/60
== END 2024-08-14 21:04 | disposition home or self-care (01) ==
LOC: ED 19:12
PROVIDERS: Family Medicine
DX: G43.909 Migraine, unspecified, not intractable, without status migrainosus (principal); J45.909 Unspecified asthma, uncomplicated; Z79.52 Long term (current) use of systemic steroids; Z79.899 Other long term (current) drug therapy; Z87.891 Personal history of nicotine dependence
CPT/HCPCS: 36415; 70450; 80053; 83735; 84703; 85025; 96374; 96375; 99284-25; J1200; J1885; J2765; J3030; J7040

== ENCOUNTER 2024-08-19 18:46 | Emergency (ER) | payer BC, OTHER ==
[~2024-08-19] VITALS: Ht 167.6 cm; Wt 72.0 kg
[~2024-08-19 18:46] MED LIST changes: +BUTALB-ACETAMI1 EACH PO; +ONDANSETRON ODT8 MG PO; +VRAYLAR6 MG PO
[2024-08-19] MEDS ORDERED: KETOROLAC TROMETHAMINE 30 MG/ML VIAL IV ONE (19:15)
[2024-08-19] MEDS ORDERED: SODIUM CHLORIDE 0.9% 1,000 ML IV SCH (19:15)
[2024-08-19] MEDS ORDERED: diphenhydrAMINE HCL 50 MG/ML VIAL IV ONE (19:15)
[2024-08-19] MEDS ORDERED: METOCLOPRAMIDE HCL 10 MG/2 ML SDV IV ONE (19:15)
[2024-08-19 21:24] VITALS: BP 120/52
== END 2024-08-19 21:25 | disposition home or self-care (01) ==
LOC: ED 18:46
DX: R51.9 Headache, unspecified (principal); J45.909 Unspecified asthma, uncomplicated; Z87.891 Personal history of nicotine dependence; Z88.8 Allergy status to other drugs, medicaments and biological substances; Z79.899 Other long term (current) drug therapy
CPT/HCPCS: 96374; 96375; 99283-25; J1200; J1885; J2765; J7030

== ENCOUNTER 2024-12-01 20:39 | Emergency (ER) | payer OTHER ==
[~2024-12-01] VITALS: Ht 167.6 cm; Wt 86.0 kg
[2024-12-01] MEDS ORDERED: ZITHROMAX250 MG PO (21:03)
[2024-12-01] MEDS ORDERED: SODIUM CHLORIDE 0.9% 2,000 ML IV SCH (21:15)
[2024-12-01 21:28] LABS: BLOOD/HGB, URINE NEGATIVE (Negative); KETONE, URINE NEGATIVE (Negative); LEUK ESTERASE, URINE NEGATIVE (negative); NITRITE, URINE NEGATIVE (negative)
[2024-12-01] MEDS ORDERED: HYDROmorphone HCL 1 MG/ML SYR IV PRN (22:15)
[2024-12-01 22:19] LABS: BASOPHILS 0.2 % (0.1-1.2); EOSINOPHILS 3.5 % (0.7-5.8); LYMPHOCYTES 39.5 % (19.3-51.7); MCH 31.4 PG (25.6-32.2); MCHC 35.7 g/dL (32.2-35.5); MCV 88.0 fL (79.4-94.8); MONOCYTES 6.8 % (4.7-12.5); NEUTROPHILS 49.7 % (34.0-71.1); RBC 4.40 M/uL (3.93-5.22)
[2024-12-01 22:35] LABS: ALT (SGPT) 21.0 U/L (14-59); AST (SGOT) 12.0 U/L (15-37); GLOMERULAR FILTRATION RATE,EST 120.0 mL/min (>60); PROTEIN, TOTAL 6.7 g/dL (6.4-8.2); UREA NITROGEN 16.0 mg/dL (7-18)
[2024-12-02] MEDS ORDERED: HYDROCODON-ACE1 EA10 PO (00:25)
[2024-12-02] MEDS ORDERED: ONDANSETRON ODT8 MG PO (00:25)
[2024-12-02] MEDS ORDERED: ONDANSETRON 4 MG HOME.PACK SL ONE (00:30)
[2024-12-02] MEDS ORDERED: HYDROCODONE BIT/ACETAMINOPHEN 5/325 MG 1 TAB HOME.PACK PO PRN (00:30)
[2024-12-02 00:40] VITALS: BP 122/91
== END 2024-12-02 00:40 | disposition home or self-care (01) ==
LOC: ED 20:39
PROVIDERS: Emergency Medicine
DX: R10.31 Right lower quadrant pain (principal); J45.909 Unspecified asthma, uncomplicated; Z87.891 Personal history of nicotine dependence; Z88.8 Allergy status to other drugs, medicaments and biological substances; Z79.899 Other long term (current) drug therapy
CPT/HCPCS: 36415; 71045; 74177; 80053; 81003; 83690; 84703; 85025; 96361; 96374; 96375; 96376; 99284-25; A9270; J1171; J2405; J7030; Q9967